=== PATIENT | female | born 1990 | race African-American/Black ===

== ENCOUNTER 2018-12-30 02:13 | Inpatient (IN) | payer OTHER ==
[2018-12-30] MEDS ORDERED: LACTATED RINGERS 2,000 ML ONE (03:39)
--- NOTE | 2018-12-30 04:14 | Ultrasound Report ---
US OB limited INDICATION / CLINICAL INFORMATION: Presentation. COMPARISON: None available. FINDINGS: A single live fetus is seen in breech position with heart rate 143. Placenta is fundal, grade 2 and free of the os. RONALD is 3.3 which is decreased. IMPRESSION: Single live fetus in breech position with heart rate 143. Decreased RONALD at 3.3 Signer Name: Rhett Joy MD FACFlaquito Signed: 12/30/2018 4:10 AM Workstation Name: [email or web address]
[2018-12-30] MEDS ORDERED: PEPCID IV ONE ×2 (04:50→07:42)
[2018-12-30] MEDS ORDERED: REGLAN IV ONE (04:50)
[2018-12-30] MEDS ORDERED: BICITRA PO ONE (04:50)
--- NOTE | 2018-12-30 04:52 | History and Physical Report ---
History of Present Illness Date of examination: 12/30/18 Date of admission: 12/30/18 02:26 Chief complaint: SROM @ 0130 History of present illness: Pt is a 28yo BF EDC 01/15/19; EGA 37 5/7 weeks presents to L&D complaining of SROM clear fluid @ 0130 followed by irregular contractions. She was scheduled for a C Section due to persistent breech presentation, and she is still breech, so she will be delivered by C Section. She received care at [facility] since 9 weeks and course has been unremarkable. records are available, but GBS is unknown. Past History Past Medical History: no pertinent history Past Surgical History: no surgical history Family/Genetic History: none Social history: no significant social history, - Obstetrical History Expected Date of Delivery: 01/15/19 Actual Gestation: 37 Week(s) 6 Day(s) : 2 Medications and Allergies Allergies Allergy/AdvReac Type Severity Reaction Status Date / Time No Known Allergies Allergy Verified 12/30/18 02:42 Home Medications Medication Instructions Recorded Confirmed Last Taken Type Pnv,Calcium 72/Iron/Folic Acid 1 tab PO DAILY 12/30/18 12/30/18 1 Day Ago History [Pnv Plus Multivit Tab] ~12/29/18 Review of Systems All systems: negative - Physical Exam Breasts: Positive: deferred Lungs: Positive: Clear to auscultation Abdomen: Positive: normal appearance Genitourinary (Female): Positive: normal external genitalia Uterus: Positive: enlarged Extremities: Positive: normal - Obstetrical FHR: category 1 Uterine Contraction Monitor Mode: External Cervical Dilatation: 5 Cervical Effacement Percentage: 70 Uterine Contraction Pattern: Irregular Uterine Contraction Intensity: Mild Results Result Diagrams: 12/30/18 20:33 All other labs normal. Ultrasound: report reviewed Assessment and Plan - Patient Problems (1) 37 weeks gestation of Onset Date: 12/30/18 Current Visit: Yes Status: Resolved Plan to address problem: A: IUP @ 37 5/7 weeks in labor PPROM Breech presentation P: Admit for a Primary C Section (2) premature rupture of membranes (PPROM) with onset of labor within 24 hours of rupture in third trimester, antepartum Onset Date: 12/30/18 Current Visit: Yes Status: Resolved (3) Breech presentation Onset Date: 12/30/18 Current Visit: Yes Status: Resolved Qualifiers: Fetus number: single or unspecified fetus Qualified Code(s): O32.1XX0 - Maternal care for breech presentation, not applicable or unspecified
[2018-12-30] MEDS ORDERED: ANCEF/STERILE WATER 2 GM/20 ML 2 GM/20 ML SYRINGE IV NR (05:00)
[2018-12-30] MEDS ORDERED: LACTATED RINGERS 1,000 ML IV SCH (05:00)
[2018-12-30] MEDS ORDERED: PITOCin/NS 20 UNIT/1000ML DRIP 20 UNITS/1,000 ML BAG IV SCH ×2 (05:00→10:00)
[2018-12-30 05:19] LABS: Basophils % (Auto) 0.3 % (0.0-1.8); Eosinophils # (Auto) 0.1 K/mm3 (0.0-0.4); Eosinophils % (Auto) 0.6 % (0.0-4.3); Hematocrit 29.5 % (30.3-42.9); Hemoglobin 9.6 gm/dl (10.1-14.3); Lymphocytes # (Auto) 2.8 K/mm3 (1.2-5.4); Lymphocytes % (Auto) 29.8 % (13.4-35.0); Mean Corpuscular HGB Conc 33 % (30-34); Mean Corpuscular Volume 82 fl (79-97); Platelet Count 186 K/mm3 (140-440); Red Blood Count 3.59 M/mm3 (3.65-5.03); Red Cell Distribution Width 14.1 % (13.2-15.2)
--- NOTE | 2018-12-30 05:38 | Anesthesia Consultation ---
Anesthesia Consult and Med Hx Date of service: 12/30/18 - Airway Anesthetic Teeth Evaluation: Good ROM Head & Neck: Adequate Mental/Hyoid Distance: Adequate Mallampati Class: Class II Intubation Access Assessment: Probably Good - Pulmonary Exam CTA: Yes - Cardiac Exam Cardiac Exam: RRR - Pre-Operative Health Status ASA Pre-Surgery Classification: ASA2 Proposed Anesthetic Plan: Epidural - Pulmonary Hx Asthma: No - Cardiovascular System Hx Hypertension: No - Central Nervous System Hx Seizures: No Hx Psychiatric Problems: No - Endocrine Hx Renal Disease: No Hx Hypothyroidism: No Hx Hyperthyroidism: No - Hematic Hx Anemia: No Hx Sickle Cell Disease: No - Other Systems Hx Alcohol Use: No
[2018-12-30] MEDS ORDERED: NARCAN 2 MG/2 ML IV PRN (05:39)
--- NOTE | 2018-12-30 05:39 | Anesthesia Day of Surgery ---
Anesthesia Day of Surgery - Day of Surgery Patient Examined: Yes Patient H&P Reviewed: Yes Patient is NPO: Yes (at 7 am)
[2018-12-30] MEDS ORDERED: fentaNYL-BUPIV 2 MCG/ML-0.125% 200 MCG/100 ML BAG EPIDURAL SCH (06:00)
[2018-12-30] MEDS ORDERED: ANCEF/STERILE WATER 2 GM/20 ML 2 GM/20 ML SYRINGE IV ONE (07:42)
[2018-12-30] MEDS ORDERED: REGLAN ONE (07:43)
[2018-12-30] MEDS ORDERED: BICITRA ONE (07:43)
[2018-12-30] MEDS ORDERED: DEXMEDETOMIDINE IV ONE (07:46)
[2018-12-30] MEDS ORDERED: NACL 0.9% IR ONE (08:56)
[2018-12-30] MEDS ORDERED: WATER FOR IRRIG STERILE IR ONE (08:56)
[2018-12-30] MEDS ORDERED: ZOFRAN ONE (09:10)
[2018-12-30] MEDS ORDERED: TUCKS PAD TP PRN (09:40)
[2018-12-30] MEDS ORDERED: MYLICON PO PRN (09:40)
[2018-12-30] MEDS ORDERED: TORADOL IV PRN (09:40)
[2018-12-30] MEDS ORDERED: TYLENOL PO PRN (09:40)
[2018-12-30] MEDS ORDERED: SENOKOT PO PRN (09:40)
[2018-12-30] MEDS ORDERED: ZOFRAN IV PRN (09:40)
[2018-12-30] MEDS ORDERED: LANSINOH TP PRN (09:40)
[2018-12-30] MEDS ORDERED: NARCAN 0.4 MG/1 ML IV PRN (09:40)
[2018-12-30] MEDS ORDERED: NORCO 5/325 PO PRN (09:40)
[2018-12-30] MEDS ORDERED: MILK OF MAGNESIA PO PRN (09:40)
--- NOTE | 2018-12-30 09:46 | Operative Report ---
Operative Report Operative Report: Date of procedure: 12/30/2018 Pre-operative diagnosis: 1. Intrauterine at 37-5/7 weeks in labor 2. premature rupture of membranes 3. Breech presentation Post-operative diagnosis: Same Procedure name(s): Primary low transverse section Surgeon: Andrew Killian MD Gear Finisher: None Anesthesia: Epidural anesthesia by Rosa Maria Santana CRNA EBL: 400 mL's Findings: A 2481 g female Apgars 8 at 1 minute 9 at 5 minutes. Conrado breech presentation. Normal uterus. Normal tubes and ovaries bilaterally. Procedure: After the patient was prepped and draped in usual sterile fashion, and after satisfactory level of epidural anesthesia was obtained, the skin knife was used to make a transverse skin incision. The incision was excised down to layer of the fascia, which was nicked in the midline and extended laterally using the Bovie cautery. The rectus muscles were dissected off the rectus fascia both superiorly and inferiorly. The rectus bellies in the midline, and the peritoneum was entered under direct visualization. The peritoneal incision was extended superiorly and inferiorly. A bladder flap was created and the bladder blade was then placed. The uterus was scored in a curvilinear linear fashion, entered in the midline revealing clear amniotic fluid. The 's Conrado breech was delivered onto the surgical field, the rest of the infant's body was delivered, cord was doubly clamped and cut and the was handed to the waiting respiratory team. Cord blood was then obtained. The placenta was manually removed from the uterus, and the uterus removed from its normal anatomical position. After gentle uterine lavage, the incision was inspected and found to be without extensions. It was then closed in 2 layers using 0 Vicryl suture in a running interlocking fashion, the second layer imbricating the first. After good hemostasis was achieved, copious amounts or irrigation was performed, and the gutters were suctioned free of blood and blood clots. The uterus was then returned to its normal anatomical position, and after excellent hemostasis assured, the peritoneum was re- approximated using 3-0 Vicryl suture in a running interlocking fashion, and then the rectus muscles were re-approximated using 3-0 Vicryl suture in a figur e-of-eight configuration. The fascia was then re-approximated using 0 Vicryl suture in running interlocking fashion. The subcutaneous layer was made hemostatic using Bovie cautery, and the skin edges re-approximated using 4-0 Vicryl suture in a sub-cuticular fashion. Patient tolerated the procedure well was transported to recovery in stable condition.
[2018-12-30] MEDS ORDERED: D5LR 1,000 ML IV SCH (10:00)
[2018-12-30] MEDS ORDERED: SODIUM CHLORIDE FLUSH SYRINGE 10 ML IV NR (10:00)
--- NOTE | 2018-12-30 10:04 | Post Anesthesia Evaluation ---
- Post Anesthesia Evaluation Patient Participated: Yes Airway Patent: Yes Stable Respiratory Function: Yes Nausea/Vomiting: No Temp > 96.8F: Yes Pain Manageable: Yes Adequeate Hydration: Yes Anesthesia Complications: No Block Receding Appropriately: Yes Patient on Ventilator: No
[2018-12-30] MEDS: PERCOCET 5/325 PO PRN ×2 (13:42→21:44)
[2018-12-30] MEDS: IBUPROFEN PO PRN ×2 (13:42→21:43)
[2018-12-30] MEDS: ANCEF/NS 1 GM/50 ML 1 GM/50 ML BAG IV SCH ×2 (13:46→21:44)
[2018-12-30] MEDS: FEOSOL PO SCH (14:53)
[2018-12-30] MEDS: PRENATAL VITAMIN PO SCH (14:53)
[2018-12-30 20:47] LABS: Hematocrit 26.2 % (30.3-42.9); Hemoglobin 8.6 gm/dl (10.1-14.3)
[2018-12-31] MEDS: IBUPROFEN PO PRN ×3 (04:06→17:45)
[2018-12-31] MEDS: PERCOCET 5/325 PO PRN ×3 (04:06→17:47)
[2018-12-31] MEDS ORDERED: BOOSTRIX IM ONE (06:00)
[2018-12-31] MEDS: PRENATAL VITAMIN PO SCH (09:42)
[2018-12-31] MEDS: FEOSOL PO SCH (09:42)
[2018-12-31] MEDS ORDERED: M-M-R II VACCINE SUB-Q ONE (09:42)
--- NOTE | 2018-12-31 12:35 | Progress Note ---
Assessment and Plan - Patient Problems (1) 37 weeks gestation of Onset Date: 12/30/18 Current Visit: Yes Status: Resolved (2) premature rupture of membranes (PPROM) with onset of labor within 24 hours of rupture in third trimester, antepartum Onset Date: 12/30/18 Current Visit: Yes Status: Resolved (3) Breech presentation Onset Date: 12/30/18 Current Visit: Yes Status: Resolved Qualifiers: Fetus number: single or unspecified fetus Qualified Code(s): O32.1XX0 - Maternal care for breech presentation, not applicable or unspecified (4) Status post Onset Date: 12/31/18 Current Visit: Yes Status: Resolved Plan to address problem: A: S/P C Section - POD #1 Doing well Asymptomatic anemia - stable Possible spinal headache P: Continue RPOC Consult anesthesia re: headache Anticipate discharge in 24-48hrs Subjective - Subjective Date of service: 12/31/18 Principal diagnosis: s/p C Section - POD #1 Interval history: Pt is feeling well but complains of persistent headache unrelieved with pain meds and worse with ambulation. She is tolerating a liquid diet without nausea or vomiting. Patient reports: appetite normal, voiding normally, dizzy ambulation, pain well controlled, no flatus, no ambulating normally, no nauseated [place]: doing well, nursing well Objective - Vital Signs Latest vital signs: Vital Signs Temp Pulse Resp BP BP Pulse Ox 12/31/18 09:46 18 12/31/18 09:37 18 12/31/18 07:59 98.1 F 73 18 110/71 12/31/18 06:25 97.9 F 76 18 110/65 96 12/30/18 23:04 97.8 F 74 18 112/68 98 12/30/18 20:52 98.0 F 62 18 117/74 99 12/30/18 16:30 97.4 F L 63 20 103/63 12/30/18 13:42 20 Intake and Output 12/30/18 12/31/18 12/31/18 22:59 06:59 14:59 Intake Total 450 180 480 Output Total 1100 1100 Balance -650 -920 480 Intake: Oral 450 480 Intake, Free Water 180 Output: Urine 1100 1100 Indwelling Catheter 1100 300 Void 800 Other: Total, Intake Amount 360 480 Total, Output Amount 600 400 - Exam Breasts: Present: deferred Lungs: Present: Clear to auscultation Abdomen: Present: normal appearance, soft Uterus: Present: normal, firm, fundal height below umbilicus Extremities: Present: normal Incision: Present: normal, dry, intact, dressed - Labs Labs: Abnormal lab results 12/30/18 Range/Units 20:33 Hgb 8.6 L (10.1-14.3) gm/dl Hct 26.2 L (30.3-42.9) % Laboratory Tests 12/30/18 12/30/18 12/30/18 04:00 04:00 20:33 WBC 9.5 RBC 3.59 L Hgb 9.6 L 8.6 L Hct 29.5 L 26.2 L MCV 82 MCH 27 L MCHC 33 RDW 14.1 Plt Count 186 Lymph % (Auto) 29.8 [place] % (Auto) 10.0 H Eos % (Auto) 0.6 Baso % (Auto) 0.3 Lymph # 2.8 [place] # 1.0 H Eos # 0.1 Baso # 0.0 Seg Neutrophils % 59.3 Seg Neutrophils # 5.7 Blood Type B POSITIVE Antibody Screen Negative
--- NOTE | 2018-12-31 13:45 | Progress Note ---
Subjective Date of service: 12/31/18 Principal diagnosis: s/p C Section - POD #1 c/o head and neck pain Interval history: Asked to see patient for c/o headache and neck discomfort since this morning. On exam she is sitting up, breast feeding baby. States headache and neck discomfort is associated with activities and movements however improved after one dose of [place]. Denies light sensitivity, nausea or vomiting. After discussion of options, patient wishes to continue pain medications, increase fluids and caffeine products. If pain does not improve with these measures will consider Epidural patch. Rosa Maria Santana CRNA Objective - Constitutional Vitals: Vital Signs - 12hr 12/31/18 12/31/18 12/31/18 06:25 07:59 09:37 Temperature 97.9 F 98.1 F Pulse Rate 76 73 Respiratory 18 18 18 Rate Blood Pressure 110/65 Blood Pressure 110/71 [Left] O2 Sat by Pulse 96 Oximetry 12/31/18 09:46 Temperature Pulse Rate Respiratory 18 Rate Blood Pressure Blood Pressure [Left] O2 Sat by Pulse Oximetry - Labs CBC & Chem 7: 12/30/18 20:33 Labs: Abnormal lab results 12/30/18 Range/Units 20:33 Hgb 8.6 L (10.1-14.3) gm/dl Hct 26.2 L (30.3-42.9) %
[2019-01-01] MEDS: IBUPROFEN PO PRN ×3 (03:17→15:58)
--- NOTE | 2019-01-01 08:25 | Progress Note ---
Subjective Date of service: 01/01/19 Principal diagnosis: s/p C Section - POD #2 Epidural Blood Patch, post dural puncture headach Interval history: Continues to C/O headache and neck discomfort which is not relieved by medication, increased fluid and caffeine intake. Risk and benefits explained and consent obtained for Epidural patch. After Time Out, Patient was prepped and draped. 1% Lidocaine field block to L3-4. #18g Tuohy Epidural needle at 7cm, no CSF or Paresthesia via Tuohy needle. 25ml of blood injected slowly. V/S stable. Tolerated procedure well, patient states "headache subsided". Objective - Constitutional Vitals: Vital Signs - 12hr 01/01/19 00:41 Temperature 98.4 F Pulse Rate 68 Respiratory 20 Rate Blood Pressure 99/56 O2 Sat by Pulse 98 Oximetry - Labs CBC & Chem 7: 12/30/18 20:33
[2019-01-01] MEDS: FEOSOL PO SCH (09:57)
[2019-01-01] MEDS: PRENATAL VITAMIN PO SCH (09:57)
--- NOTE | 2019-01-01 11:49 | Progress Note ---
Assessment and Plan - Patient Problems (1) 37 weeks gestation of Onset Date: 12/30/18 Current Visit: Yes Status: Resolved (2) premature rupture of membranes (PPROM) with onset of labor within 24 hours of rupture in third trimester, antepartum Onset Date: 12/30/18 Current Visit: Yes Status: Resolved (3) Breech presentation Onset Date: 12/30/18 Current Visit: Yes Status: Resolved Qualifiers: Fetus number: single or unspecified fetus Qualified Code(s): O32.1XX0 - Maternal care for breech presentation, not applicable or unspecified (4) Status post Onset Date: 12/31/18 Current Visit: Yes Status: Resolved Plan to address problem: A: S/P C Section - POD #2 Doing well Asymptomatic anemia - stable Spinal headache - resolved P: May go home tomorrow. Subjective - Subjective Date of service: 01/01/19 Principal diagnosis: s/p C Section - POD #2 Epidural Blood Patch, post dural puncture headach Interval history: Pt is feeling much better s/p epidural blood patch, she denies headaches or blurred vision. She is tolerating a reg diet without nausea or vomiting, ambulating and voiding without difficulty. Patient reports: appetite normal, voiding normally, pain well controlled, flatus, ambulating normally, no dizzy ambulation, no nauseated [place]: doing well, nursing well Objective - Vital Signs Latest vital signs: Vital Signs Temp Pulse Resp BP BP Pulse Ox 01/01/19 10:14 18 01/01/19 07:19 98.0 F 88 18 109/59 99 01/01/19 00:41 98.4 F 68 20 99/56 98 12/31/18 17:45 18 12/31/18 17:19 97.2 F L 78 18 125/86 Intake and Output 12/31/18 01/01/19 01/01/19 22:59 06:59 14:59 Intake Total 480 480 Output Total 200 Balance 480 280 Intake: Oral 480 120 Intake, Free Water 360 Output: Emesis 200 Other: Total, Intake Amount 480 120 Total, Output Amount 200 # Voids Void 1 1 - Exam Abdomen: Present: normal appearance, soft Uterus: Present: normal, firm, fundal height below umbilicus Extremities: Present: normal Incision: Present: normal, dry, intact
--- NOTE | 2019-01-01 12:31 | Discharge Summary ---
Providers - Providers Date of Admission: 12/30/18 02:26 Date of discharge: 01/02/19 Attending physician: MARLEN MILAN Primary care physician: MARLEN MILAN Hospitalization Reason for admission: active labor, section, rupture of membranes, IUP at term Procedure: section, primary low transverse Episiotomy: none Laceration: none Incision: normal, dry, intact Other procedures: none complications: spinal headache Discharge diagnosis: IUP at term delivered [place] baby: female Hospital course: Pt is a 28yo [place] Female EDC 01/15/19; EGA 37 5/7 weeks who presented to L&D complaining of SROM clear fluid @ 0130 followed by irregular contractions. She was scheduled for a C Section due to persistent breech presentation, and was still breech, so she was delivered by an uncomplicated C Section. By POD #2 she was tolerating a reg diet without nausea or vomiting, ambulating and voiding without difficulty, and spinal headache resolved with a blood patch. She will therefore be discharged to home on POD #3 in stable condition. Condition at discharge: Good Disposition: DC-01 TO HOME OR SELFCARE - Discharge Diagnoses (1) 37 weeks gestation of Status: Resolved (2) premature rupture of membranes (PPROM) with onset of labor within 24 hours of rupture in third trimester, antepartum Status: Resolved (3) Breech presentation Status: Resolved Qualifiers: Fetus number: single or unspecified fetus Qualified Code(s): O32.1XX0 - Maternal care for breech presentation, not applicable or unspecified (4) Status post Status: Resolved Plan - Discharge Medications Prescriptions: Ferrous Sulfate [Feosol 325 MG tab] 325 mg PO BID #60 tablet Ibuprofen [Motrin 800 MG tab] 800 mg PO Q6H PRN #30 tablet PRN Reason: Pain, Mild (1-3) HYDROcodone/APAP 5-325 [[place] 5-325 mg TAB] 1 each PO Q6HR PRN #30 tablet PRN Reason: Pain, Moderate (4-6) Vit-Fe Fumar-FA [ Vitamin] 1 each PO QDAY #30 tablet - Provider Discharge Summary Activity: routine, no sex for 6 weeks, no heavy lifting 4 weeks, no strenuous exercise Diet: routine Instructions: routine Additional instructions: [] Smoking cessation referral if applicable(refer to patient education folder for contact #) [] Refer to [facility] Book[facility] Call your doctor immediately for: * Fever > 100.5 * Heavy vaginal bleeding ( >1 pad per hour) * Severe persistent headache * Shortness of breath * Reddened, hot, painful area to leg or breast * Drainage or odor from incision. * Keep incision clean and dry at all times and follow doctor's instructions regarding bathing/showering - Follow up plan Follow up: MARLEN MILAN MD [Primary Care Provider] - 14 Days CJ MEDRANO NP [Referring] - 14 Days
[2019-01-01] MEDS: PERCOCET 5/325 PO PRN (20:19)
[2019-01-02] MEDS: IBUPROFEN PO PRN (05:32)
[2019-01-02] MEDS: FEOSOL PO SCH (09:41)
[2019-01-02] MEDS: PRENATAL VITAMIN PO SCH (09:41)
[2019-01-02] MEDS: PERCOCET 5/325 PO PRN (10:21)
[2019-01-02 13:03] VITALS: BP 126/79
== END 2019-01-02 12:50 | disposition home or self-care (01) | DRG 788 ==
LOC: TRG 02:13 → APU 02:26 → OB 11:20
PROVIDERS: ADMIT Obstetrics & Gynecology; ATTEND Obstetrics & Gynecology
PROC: 10D00Z1 Extraction of Products of Conception, Low, Open Approach (ICD-10-PCS; principal; 2018-12-30)
PROC: 3E0234Z Introduction of Serum, Toxoid and Vaccine into Muscle, Percutaneous Approach (ICD-10-PCS; 2018-12-31)
DX: O32.1XX0 Maternal care for breech presentation, not applicable or unspecified (principal); O42.02 Full-term premature rupture of membranes, onset of labor within 24 hours of rupture; O90.81 Anemia of the puerperium; D64.9 Anemia, unspecified; O89.4 Spinal and epidural anesthesia-induced headache during the puerperium; Z3A.37 37 weeks gestation of pregnancy; Z37.0 Single live birth; Z23 Encounter for immunization
CPT/HCPCS: 36415; 76815; 85014; 85018; 85025; 86850; 86900; 86901; 90471; 90715; G0378; J0690; J2405; J2590; J2765; J3490; J7120; J7121